=== PATIENT | male | born 1965 | race Hispanic/Latino ===

== ENCOUNTER → 2019-10-07 | Day surgery (SDC) | payer BC ==
[2019-10-06 11:16] LABS: BASOPHILS # (AUTO) 0.1 (0.0-0.1); BASOPHILS % 0.6 % (0.0-1.0); EOSINOPHILS # (AUTO) 0.6 (0.0-0.4); EOSINOPHILS % 6.5 % (0.0-6.0); HEMATOCRIT 44.4 % (38.2-49.6); HEMOGLOBIN 14.4 g/dL (14.0-18.0); LYMPHOCYTES # (AUTO) 2.2 (1.0-3.2); LYMPHOCYTES % 25.9 % (18.0-39.1); MEAN CORPUSCULAR HEMOGLOBIN 28.7 pg (28-32); MEAN CORPUSCULAR HGB CONC 32.4 g/dL (31-35); MEAN CORPUSCULAR VOLUME 88.4 fL (81-99); MONOCYTES # (AUTO) 0.7 (0.2-0.8); MONOCYTES % 8.2 % (4.4-11.3); NEUTROPHILS # (AUTO) 4.9 (2.1-6.9); NEUTROPHILS % 58.6 % (38.7-80.0); PLATELET COUNT 292 x10e3/uL (140-360); RED BLOOD COUNT 5.02 x10e6/uL (4.3-5.7); RED CELL DISTRIBUTION WIDTH 13.5 % (11.7-14.4)
[2019-10-06 11:48] LABS: ANION GAP 11.9 mmol/L (8-16); BLOOD UREA NITROGEN 14 mg/dL (7-26); BUN/CREATININE RATIO 15 (6-25); CALCIUM 9.6 mg/dL (8.4-10.2); CARBON DIOXIDE 31 mmol/L (22-29); CHLORIDE 96 mmol/L (98-107); CREATININE, SERUM 0.93 mg/dL (0.72-1.25); EST GLOMERULAR FILTRATION RATE > 60 ML/MIN (60-); GLUCOSE 106 mg/dL (74-118); POTASSIUM 3.9 mmol/L (3.5-5.1); SODIUM 135 mmol/L (136-145)
[~2019-10-07] MED LIST: ACETAMINOPHEN 1000 MG/100 ML IV ONE; ATORVASTATIN CA10 MG PO; BUPIVACAINE 0.25%/EPI 30ML SDV INJ ONE; DEXAMETHASONE SOD PHOS INJ 4 MG/ML VIAL ONE; FENTANYL CITRATE/PF 100MCG/2 ML INJ ONE; GLYCOPYRROLATE INJ 1MG/ 5 ML SYR ONE; LIDOCAINE HCL 1% LOCAL INJ 20 ML VIAL ONE; LIDOCAINE HCL 2% 30 ML TUBE ONE; LIDOCAINE HCL 2% LOCAL INJ 5 ML SDV VIAL INJ ONE; LISINOPRIL-HCT1 EACH PO; MIDAZOLAM HCL 2 MG/2 ML VIAL ONE; NEOSTIGMINE 5 MG/5ML SYR ONE; ONDANSETRON HCL INJ 2MG/ML 2ML 2 MG/ML VIAL ONE; PROPOFOL IV EMULSION 10 MG/ML 20 ML VIAL ONE; ROCURONIUM BROMIDE 10 MG/ML 5ML VIAL ONE; SEVOFLURANE INHAL SOLN 250 ML PEN BTL ONE; SUGAMMADEX SODIUM 200 MG/2 ML VIAL IV ONE; TERBINAFINE HC250 MG PO
--- OUTSIDE RECORDS SUMMARY | 2019-10-07 08:52 | XMS REPORT | Summary of Care ---
Author Author TAMICA BAUTISTA N.P. 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 Unavailable Unavailable Unavailable Unavailable Functional Status Name Dates Details Functional status health issues are not documented Status: Name Dates Details Cognitive status health issues are not documented Status: Problems Name Dates Details Osteoarthritis of knee (715.36, M17.10) Status: Active Hypertension (401.9, I10) Status: Active Primary localized osteoarthrosis of left lower leg (715.16, M17.12) Status: Active Primary localized osteoarthritis of both knees (715.16, M17.0) Status: Active Status post left partial knee replacement (V43.65, Z96.652) Status: Active Primary osteoarthritis of one knee, right (715.16, M17.11) Status: Active Bilateral knee pain (719.46, M25.561) Status: Active Left ankle pain (719.47, M25.572) Status: Active Peroneal tendinitis, left (726.79, M76.72) Status: Active Left foot pain (729.5, M79.672) Status: Active Medications Name Dates Details Lisinopril-Hydrochlorothiazide 10-12.5 MG Oral Tablet Active Supartz SOLN Supartz injection #5, right knee, 05/06/2015. * Refills: 0 Active Supartz SOLN Supartz injection #5, left knee, 04/01/2015. * Refills: 0 Active Lipitor 10 MG Oral Tablet * Refills: 0 Active Hydrocodone-Acetaminophen 5-325 MG Oral Tablet * Refills: 0 Active Diclofenac Sodium 50 MG Oral Tablet Delayed Release TAKE 1 TABLET TWICE DAILY * Refills: 0 Active Allergies and Adverse Reactions Name Dates Details No Known Drug Allergies (Allergy) Status: Active Past Medical History Name Dates Details Hypertension (401.9, I10) Status: Active History of High cholesterol (272.0, E78.00) Status: Resolved Procedures Procedure Dates Details Procedures not documented Immunization Name Dates Details DTP Comments: Before [id number] Family History Name Dates Details Family history of cardiac disorder (V17.49, Z82.49) Status: Active Family history of hypertension (V17.49, Z82.49) Status: Active Name Dates Details Family history of hypertension (V17.49, Z82.49) Status: Active Name Dates Details Family history of hypertension (V17.49, Z82.49) Status: Active Social History Name Dates Details - Status: Name Dates Details Never smoker Vital Signs Date Test Result Details [id number] BP Systolic 142 mm[Hg] Status: Comments: Location: RUE; Position: Sitting BP Diastolic 91 mm[Hg] Status: Comments: Location: RUE; Position: Sitting Height 68 in Status: Heart Rate 85 /min Status: Comments: Location: R Radial; Results Date Description Value Details [id number] [U] XRAY ANKLE MIN 3 VWS LEFT [id number] XR ANKLE MIN 3 VWS LEFT Images acquired, not reported on this accession number. Plan of Care Name Dates Details Planned Observations Planned Goals not documented Planned Encounters Appointment; TAMICA BAUTISTA NP On: 06-Jun-2018 8:00 Interventions Provided Labs/Procedures/Imaging* [U] XRAY ANKLE MIN 3 VWS LEFT [id number]; Done: 14 Apr 2018 Plan* Patient Education/Instructions: * Patient Education Provided * Reassurance * Counseling Provided - Discussed with Family/Patient * Family/Patient given opportunity to ask questions. * Family/Patient Verbalized Understanding. * Patient/Parent to call or return with any abnormal changes * Orders: * Physical Therapy * Follow Up: * Return to the clinic in 6 weeks or as needed. * Patient will get shoe inserts, PT, and follow up if no improvement. Instructions Name Dates Details Instructions not documented Encounters Appointment; TAMICA BAUTISTA NP Encounter Diagnosis: Problem not documented On: 28-Sep-2016 8:30 Appointment; TAMICA BAUTISTA NP Encounter Diagnosis: Problem not documented On: 14-Apr-2018 15:30
--- NOTE | 2019-10-07 13:00 | Operative Report ---
DATE OF PROCEDURE: 10/07/2019 SURGEON: Pablo Chung MD PREOPERATIVE DIAGNOSIS: Anorectal fistula. POSTOPERATIVE DIAGNOSIS: Anorectal fistula. OPERATION PERFORMED: Fistulectomy. ANESTHESIA: General. COMPLICATIONS: None. ESTIMATED BLOOD LOSS: Minimal. DESCRIPTION OF PROCEDURE: With the patient lying in bed in the lithotomy position under good general anesthesia, the perineum was prepped with Betadine solution and draped in the usual manner. Examination at this point revealed an opening at about the 12 to 1 o'clock position, roughly about an inch from the dentate line. There was an internal opening at the 12 o'clock position. The fistula probe easily passed from the external opening to the internal opening. The fistula tract was then opened and all the necrotic and fibrotic tissue was resected. After this was done, hemostasis was ascertained. A Gelfoam pack was placed. The whole area was infiltrated with 0.25% Marcaine. The dressing was applied. The sponge, lap, and needle count was correct. The patient tolerated the procedure well and returned to the recovery room in stable condition. Pablo Chung MD JLR/MODL /[id number]
[2019-10-07 13:20] VITALS: BP 101/71
== END | disposition home or self-care (01) ==
LOC: OR 08:37
PROVIDERS: ATTEND Surgery
DX: K60.5 Anorectal fistula (principal); Z01.810 Encounter for preprocedural cardiovascular examination; Z01.812 Encounter for preprocedural laboratory examination; I10 Essential (primary) hypertension
CPT/HCPCS: 36415; 46270; 80048; 85025; 93005; J2001; J2250; J3010; J1100; J2405

== ENCOUNTER 2022-01-29 09:06 | Observation (INO) | payer BC ==
[~2022-01-29] VITALS: Ht 172.7 cm; Wt 133.8 kg
[~2022-01-29 09:06] MED LIST changes: -ACETAMINOPHEN 1000 MG/100 ML IV ONE; -BUPIVACAINE 0.25%/EPI 30ML SDV INJ ONE; -DEXAMETHASONE SOD PHOS INJ 4 MG/ML VIAL ONE; -FENTANYL CITRATE/PF 100MCG/2 ML INJ ONE; -GLYCOPYRROLATE INJ 1MG/ 5 ML SYR ONE; -LIDOCAINE HCL 1% LOCAL INJ 20 ML VIAL ONE; -LIDOCAINE HCL 2% 30 ML TUBE ONE; -LIDOCAINE HCL 2% LOCAL INJ 5 ML SDV VIAL INJ ONE; -MIDAZOLAM HCL 2 MG/2 ML VIAL ONE; -NEOSTIGMINE 5 MG/5ML SYR ONE; -ONDANSETRON HCL INJ 2MG/ML 2ML 2 MG/ML VIAL ONE; -PROPOFOL IV EMULSION 10 MG/ML 20 ML VIAL ONE; -ROCURONIUM BROMIDE 10 MG/ML 5ML VIAL ONE; -SEVOFLURANE INHAL SOLN 250 ML PEN BTL ONE; -SUGAMMADEX SODIUM 200 MG/2 ML VIAL IV ONE
[2022-01-29 09:56] LABS: BASOPHILS # (AUTO) 0.1 (0.0-0.1); BASOPHILS % 0.9 % (0.0-1.0); EOSINOPHILS # (AUTO) 0.4 (0.0-0.4); EOSINOPHILS % 6.4 % (0.0-6.0); HEMATOCRIT 42.5 % (38.2-49.6); HEMOGLOBIN 13.5 g/dL (14.0-18.0); LYMPHOCYTES # (AUTO) 1.7 (1.0-3.2); LYMPHOCYTES % 30.1 % (18.0-39.1); MEAN CORPUSCULAR HEMOGLOBIN 28.6 pg (28-32); MEAN CORPUSCULAR HGB CONC 31.8 g/dL (31-35); MONOCYTES # (AUTO) 0.4 (0.2-0.8); MONOCYTES % 7.6 % (4.4-11.3); NEUTROPHILS # (AUTO) 3.1 (2.1-6.9); NEUTROPHILS % 54.8 % (38.7-80.0); PLATELET COUNT 269 x10e3/uL (140-360); RED BLOOD COUNT 4.72 x10e6/uL (4.3-5.7); RED CELL DISTRIBUTION WIDTH 14.1 % (11.7-14.4)
[2022-01-29 10:06] LABS: ALANINE AMINOTRANSFERASE 16 IU/L (0-55); ALBUMIN 4.1 g/dL (3.5-5.0); ALBUMIN/GLOBULIN RATIO 1.1 (0.8-2.0); ALKALINE PHOSPHATASE 74 IU/L (40-150); ANION GAP 11.2 mmol/L (8-16); BLOOD UREA NITROGEN 14 mg/dL (7-26); BUN/CREATININE RATIO 16 (6-25); CALCIUM 10.1 mg/dL (8.4-10.2); CARBON DIOXIDE 28 mmol/L (22-29); CHLORIDE 102 mmol/L (98-107); CREATINE KINASE 254 IU/L (30-200); CREATININE, SERUM 0.87 mg/dL (0.72-1.25); EST GLOMERULAR FILTRATION RATE 91 ML/MIN (60-); GLUCOSE 95 mg/dL (74-118); POTASSIUM 4.2 mmol/L (3.5-5.1); SODIUM 137 mmol/L (136-145)
[2022-01-29 10:27] LABS: INR 0.95; PROTHROMBIN TIME 13.5 seconds (11.9-14.5)
[2022-01-29] MEDS ORDERED: ONDANSETRON HCL INJ 2MG/ML 2ML 2 MG/ML VIAL IV PRN (10:30)
[2022-01-29 10:32] LABS: PARTIAL THROMBOPLASTIN TIME 29.3 seconds (23.8-35.5)
[2022-01-29] MEDS: FAMOTIDINE 20 MG/2 ML VIAL IV SCH ×2 (11:02→23:14)
[2022-01-29] MEDS ORDERED: HYDROCHLOROTHIA25 MG PO (13:22)
[2022-01-29] MEDS ORDERED: LISINOPRIL40 MG PO (13:22)
[2022-01-29 13:31] VITALS: BP 128/80
[2022-01-29 18:18] LABS: CREATINE KINASE MB 2.2 ng/mL (0-5.0)
[2022-01-29 19:50] VITALS: BP 112/79
[2022-01-29 20:08] VITALS: BP 112/79
[2022-01-29] MEDS ORDERED: ASPIRIN 81 MG ENTERIC COATED PO ONE (23:45)
[2022-01-30] VITALS (7 sets, daily range): BP systolic 97–117; BP diastolic 66–77
[2022-01-30 00:12] LABS: CREATINE KINASE MB 1.8 ng/mL (0-5.0)
[2022-01-30] MEDS: ENOXAPARIN SOD INJ 40 MG/0.4 ML SYR SC SCH ×2 (01:31→08:43)
[2022-01-30 05:44] LABS: BASOPHILS # (AUTO) 0.1 (0.0-0.1); BASOPHILS % 0.9 % (0.0-1.0); EOSINOPHILS # (AUTO) 0.5 (0.0-0.4); EOSINOPHILS % 8.8 % (0.0-6.0); HEMATOCRIT 40.3 % (38.2-49.6); HEMOGLOBIN 13.2 g/dL (14.0-18.0); LYMPHOCYTES # (AUTO) 1.6 (1.0-3.2); LYMPHOCYTES % 28.4 % (18.0-39.1); MEAN CORPUSCULAR HEMOGLOBIN 29.1 pg (28-32); MEAN CORPUSCULAR HGB CONC 32.8 g/dL (31-35); MONOCYTES # (AUTO) 0.5 (0.2-0.8); MONOCYTES % 8.2 % (4.4-11.3); NEUTROPHILS # (AUTO) 3.1 (2.1-6.9); NEUTROPHILS % 53.5 % (38.7-80.0); PLATELET COUNT 266 x10e3/uL (140-360); RED BLOOD COUNT 4.53 x10e6/uL (4.3-5.7); RED CELL DISTRIBUTION WIDTH 14.2 % (11.7-14.4)
[2022-01-30 06:09] LABS: ALBUMIN 3.7 g/dL (3.5-5.0); ANION GAP 13.4 mmol/L (8-16); CALCIUM 9.7 mg/dL (8.4-10.2); CHOL/HDL RATIO 4.4 (3.9-4.7); CREATININE, SERUM 0.94 mg/dL (0.72-1.25); POTASSIUM 4.4 mmol/L (3.5-5.1)
[2022-01-30] MEDS: HYDROCHLOROTHIAZIDE 25 MG TAB PO SCH (08:38)
[2022-01-30] MEDS: LISINOPRIL 20 MG TAB PO SCH (08:38)
[2022-01-30] MEDS: ATORVASTATIN 10 MG TAB PO SCH (08:38)
[2022-01-30] MEDS: FAMOTIDINE 20 MG/2 ML VIAL IV SCH ×2 (08:42→21:34)
[2022-01-30] MEDS ORDERED: ONDANSETRON HCL 4 MG ORAL DISINTEGRATING TAB SL PRN (19:45)
[2022-01-31 04:00] VITALS: BP 105/70
[2022-01-31] MEDS ORDERED: ASPIRIN81 MG PO (07:37)
[2022-01-31 07:53] VITALS: BP 105/70
[2022-01-31] MEDS ORDERED: FAMOTIDINE 20 MG/2 ML VIAL IV SCH (08:00)
[2022-01-31 08:15] VITALS: BP 120/81
[2022-01-31] MEDS: ATORVASTATIN 10 MG TAB PO SCH (09:09)
[2022-01-31] MEDS: HYDROCHLOROTHIAZIDE 25 MG TAB PO SCH (09:09)
[2022-01-31] MEDS: ENOXAPARIN SOD INJ 40 MG/0.4 ML SYR SC SCH (09:10)
[2022-01-31] MEDS: LISINOPRIL 20 MG TAB PO SCH (09:10)
[2022-01-31] MEDS ORDERED: FAMOTIDINE 20 MG TAB PO SCH (16:30)
== END 2022-01-31 10:59 | disposition home or self-care (01) ==
LOC: ER 09:20 → ERHOLD 10:21 → MED/SURG2 12:49
PROVIDERS: ADMIT Internal Medicine; ATTEND Internal Medicine
DX: R07.89 Other chest pain (principal); I10 Essential (primary) hypertension; E78.5 Hyperlipidemia, unspecified; Z82.49 Family history of ischemic heart disease and other diseases of the circulatory system; M17.0 Bilateral primary osteoarthritis of knee; E66.01 Morbid (severe) obesity due to excess calories; Z68.41 Body mass index [BMI] 40.0-44.9, adult; Z20.822 Contact with and (suspected) exposure to COVID-19
CPT/HCPCS: 36415 ×2; 71045; 80053 ×2; 80061; 82550; 82553; 83735; 83880; 84484; 85025 ×2; 85610; 85730; 93005; 93017; 94799 ×2; 99284; G0378 ×3; J1650; U0002

== ENCOUNTER 2022-03-06 05:29 | Emergency (ER) | payer BC ==
[~2022-03-06] VITALS: Ht 172.7 cm; Wt 126.1 kg
[~2022-03-06 05:29] MED LIST changes: +ASPIRIN81 MG PO; +HYDROCHLOROTHIA25 MG PO; +LISINOPRIL40 MG PO
[2022-03-06] MEDS ORDERED: KETOROLAC TROMETHAMINE 60 MG/2 ML VIAL IM ONE (05:45)
== END 2022-03-06 06:06 | disposition home or self-care (01) ==
LOC: ER 05:38
DX: M79.605 Pain in left leg (principal); M13.88 Other specified arthritis, other site; I10 Essential (primary) hypertension; E11.9 Type 2 diabetes mellitus without complications; E78.5 Hyperlipidemia, unspecified
CPT/HCPCS: 99282; J1885